=== PATIENT | female | born 1950 | race Hispanic/Latino ===

== ENCOUNTER → 2020-04-03 | Outpatient (CLI) | payer OTHER | END | disposition home or self-care (01) | LOC: RAH 09:52 | PROVIDERS: ATTEND Internal Medicine | DX: K44.9 Diaphragmatic hernia without obstruction or gangrene (principal); K21.9 Gastro-esophageal reflux disease without esophagitis; R10.13 Epigastric pain; Z90.49 Acquired absence of other specified parts of digestive tract | CPT/HCPCS: 76700 ==

== ENCOUNTER → 2020-08-10 | Outpatient (CLI) | payer OTHER ==
[~2020-08-10] MED LIST: DIATR MEGLU/DIATRIZOATE SODIUM 30 ML BOTTLE ONE
== END | disposition home or self-care (01) ==
LOC: RAH 10:11
PROVIDERS: ATTEND Internal Medicine
DX: Z43.1 Encounter for attention to gastrostomy (principal); J86.0 Pyothorax with fistula; J98.11 Atelectasis; K57.30 Diverticulosis of large intestine without perforation or abscess without bleeding; J90 Pleural effusion, not elsewhere classified
CPT/HCPCS: 74176; 74240; Q9963

== ENCOUNTER → 2020-09-04 | Outpatient (CLI) | payer OTHER | END | disposition home or self-care (01) | LOC: RAH 08:39 | PROVIDERS: ATTEND Internal Medicine Critical Care Medicine | DX: J86.0 Pyothorax with fistula (principal) | CPT/HCPCS: 74240; Q9963 ==

== ENCOUNTER → 2021-03-20 | Outpatient (CLI) | payer OTHER | END | disposition home or self-care (01) | LOC: DAH 14:11 → EDSTATUS 03-26 08:18 | PROVIDERS: ATTEND Internal Medicine Gastroenterology | DX: Z01.812 Encounter for preprocedural laboratory examination (principal); R13.10 Dysphagia, unspecified; Z20.822 Contact with and (suspected) exposure to COVID-19 | CPT/HCPCS: 87635; C9803 ==

== ENCOUNTER → 2022-02-05 | Outpatient (CLI) | payer OTHER | END | disposition home or self-care (01) | LOC: RAH 08:26 | PROVIDERS: ATTEND Surgery | DX: R13.10 Dysphagia, unspecified (principal); R93.5 Abnormal findings on diagnostic imaging of other abdominal regions, including retroperitoneum; Z98.890 Other specified postprocedural states | CPT/HCPCS: 74240 ==

== ENCOUNTER 2022-02-26 06:22 | Day surgery (SDC) | payer OTHER ==
[~2022-02-26] VITALS: Ht 162.6 cm; Wt 95.3 kg
[2022-02-26] VITALS (11 sets, daily range): BP systolic 90–138; BP diastolic 59–88
[~2022-02-26 06:22] MED LIST changes: +CARV12.511 PO; -DIATR MEGLU/DIATRIZOATE SODIUM 30 ML BOTTLE ONE; +FAMO40TA75 PO; +VITAD50000 PO
[2022-02-26] MEDS ORDERED: PROPOFOL 10 MG/ML 20ML VIAL IV ONE ×3 (07:51→08:05)
[2022-02-26] MEDS ORDERED: EPHEDRINE SULFATE 50 MG/ML AMPULE ONE (08:15)
[2022-02-26] MEDS ORDERED: IPRATROPIUM/ALBUTEROL SULFATE 3 ML SOLUTION IH ONE ×2 (08:31→09:46)
[2022-02-26] MEDS ORDERED: 0.9%NACL 1000ML 1,000 ML IV ONE (12:07)
== END 2022-02-26 09:30 | disposition home or self-care (01) ==
LOC: DAH 06:22 → ENDO 06:22
PROVIDERS: ATTEND Surgery
DX: R93.5 Abnormal findings on diagnostic imaging of other abdominal regions, including retroperitoneum (principal); K22.2 Esophageal obstruction; Z20.822 Contact with and (suspected) exposure to COVID-19; K29.50 Unspecified chronic gastritis without bleeding; K31.84 Gastroparesis; K20.90 Esophagitis, unspecified without bleeding; K44.0 Diaphragmatic hernia with obstruction, without gangrene; I10 Essential (primary) hypertension; E66.01 Morbid (severe) obesity due to excess calories; Z79.899 Other long term (current) drug therapy
CPT/HCPCS: 87426 ×2; 94640 ×2; 88305; 88342; 71045; 43239; 88341; J7030 ×2; J3490; J2704 ×3; A4620; A4215 ×2; A4223; A4657; A7002; A4222; A4221; A4663; A4216; A4606

== ENCOUNTER → 2022-04-09 | Outpatient (CLI) | payer OTHER | END | disposition home or self-care (01) | LOC: RAH 06:55 | PROVIDERS: ATTEND Surgery | DX: R93.5 Abnormal findings on diagnostic imaging of other abdominal regions, including retroperitoneum (principal); K21.9 Gastro-esophageal reflux disease without esophagitis | CPT/HCPCS: 78264; A9541 ==